=== PATIENT | male | born 1960 | race Asian ===

== ENCOUNTER 2021-03-28 23:16 | Emergency (ER) | payer OTHER ==
[2021-03-28 23:21] VITALS: BP 127/81; PULSE 78; TEMP 98.1; BMI 29.7
[2021-03-29] MEDS ORDERED: LIDOCAINE 5% TOPICAL PATCH TP ONE (00:08)
[2021-03-29] MEDS ORDERED: KETOROLAC TROMETHAMINE 30 MG/1 ML VIAL IM ONE (00:08)
[2021-03-29] MEDS ORDERED: diazePAM 5 MG TABLET PO ONE (00:08)
[2021-03-29] MEDS ORDERED: LIDOCAINE 5% TOPICAL PATCH ONE (00:30)
[2021-03-29] MEDS ORDERED: diazePAM 5 MG TABLET ONE (00:30)
[2021-03-29] MEDS ORDERED: KETOROLAC TROMETHAMINE 30 MG/1 ML VIAL ONE (00:30)
[2021-03-29] MEDS ORDERED: LIDOCAINE PATCH REMOVAL MC SCH (22:00)
== END 2021-03-29 01:16 | disposition home or self-care (01) ==
LOC: JER 23:16
PROC: 3E0233Z Introduction of Anti-inflammatory into Muscle, Percutaneous Approach (ICD-10-PCS; principal; 2021-03-28)
DX: M54.32 Sciatica, left side (principal)
CPT/HCPCS: 99284-25

== ENCOUNTER 2024-07-03 10:20 | Emergency (ER) | payer OTHER ==
[2024-07-03 10:40] VITALS: BP 133/63; PULSE 89; RESP 18; TEMP 98.6; BMI 31.3
[2024-07-03] MEDS ORDERED: ALBUTEROL SO4 2.5/IPRATROPIUM 0.5 INH SOL 3 ML VIAL.NEB. NEB ONE (10:43)
[2024-07-03] MEDS: ALBUTEROL SO4 2.5/IPRATROPIUM 0.5 INH SOL 3 ML VIAL.NEB. NEB ONE (10:54)
== END 2024-07-03 11:43 | disposition home or self-care (01) ==
LOC: JERFT 10:20
PROC: 3E0F7GC Introduction of Other Therapeutic Substance into Respiratory Tract, Via Natural or Artificial Opening (ICD-10-PCS; principal; 2024-07-03)
DX: J40 Bronchitis, not specified as acute or chronic (principal); J06.9 Acute upper respiratory infection, unspecified; R05.9 Cough, unspecified; R09.81 Nasal congestion; R06.02 Shortness of breath
CPT/HCPCS: 0241U-QW; 71046-TC-FY; 99284-25